=== PATIENT | male | born 2005 | race Caucasian/White ===

== ENCOUNTER 2025-05-02 11:31 | Outpatient (CLI) | payer BC, SELFPAY ==
--- NOTE | ~2025-05-02 | XR_ITS ---
EXAMINATION: XR chest 2V DATE: 05/02/2025 11:46 INDICATION: Shortness of breath. TECHNIQUE: Frontal and lateral views of the chest were obtained. COMPARISON: None available FINDINGS: Cardiomegaly is suggested with cardiothoracic ratio at 0.55. Lungs are free of acute processes. Central vascular markings are normal. Probably calcified left hilar node at the aorticopulmonary window suspected. IMPRESSION: 1. No acute pulmonary findings. 2. Evidence of mild cardiomegaly. 3. Probably calcified, mildly enlarged lymph node at the aortopulmonary window on the PA view. Reviewed, dictated and finalized at location [facility]
== END 2025-05-02 11:32 | disposition home or self-care (01) ==
LOC: MICIMG 11:35
PROVIDERS: PCP Pediatrics; Visit Provider Pediatrics
DX: R06.09 Other forms of dyspnea (principal)
CPT/HCPCS: 71046